=== PATIENT | female | born 1950 | race Caucasian/White ===

== ENCOUNTER → 2016-06-30 | Outpatient (CLI) | payer MEDICARE, BC ==
[~2016-06-30] MED LIST: ALEVE 220MG220 MG PO; CRANBERRY FRUI405 MG PO; MIRTAZAPINE7.5 MG PO; NORCO 325 MG-51 TAB PO; PRILOSEC 20MG20 MG PO; VOLTAREN 75 DR75 MG PO; ZYRTEC 10MG10 MG PO
== END ==
LOC: COL.CARD 13:41
DX: I34.0 Nonrheumatic mitral (valve) insufficiency (principal); I49.8 Other specified cardiac arrhythmias

== ENCOUNTER 2016-12-20 14:58 | Emergency (ER) | payer MEDICARE, BC ==
[~2016-12-20] VITALS: Ht 160 cm; Wt 75.0 kg
[2016-12-20 15:02] VITALS: BP 145/70; TEMP 97.5
[2016-12-20] MEDS ORDERED: PRILOSEC 20MG20 MG PO (16:11)
[2016-12-20] MEDS ORDERED: MIRTAZAPINE7.5 MG PO (16:11)
[2016-12-20] MEDS ORDERED: ZYRTEC 10MG10 MG PO (16:11)
[2016-12-20] MEDS ORDERED: ALEVE 220MG220 MG PO (16:11)
[2016-12-20] MEDS ORDERED: CRANBERRY FRUI405 MG PO (16:12)
[2016-12-20] MEDS ORDERED: NORCO 325 MG-51 TAB PO (17:33)
[2016-12-20] MEDS ORDERED: VOLTAREN 75 DR75 MG PO (17:33)
[2016-12-20 18:10] VITALS: PULSE 69
== END 2016-12-20 18:11 | disposition home or self-care (01) ==
LOC: COL.ER 14:58
DX: S83.91XA Sprain of unspecified site of right knee, initial encounter (principal); K21.9 Gastro-esophageal reflux disease without esophagitis; Z98.890 Other specified postprocedural states; X50.0XXA Overexertion from strenuous movement or load, initial encounter; Y92.009 Unspecified place in unspecified non-institutional (private) residence as the place of occurrence of the external cause
CPT/HCPCS: L1830

== ENCOUNTER → 2018-04-11 | Outpatient (CLI) | payer MEDICARE, BC | LOC: MC.RAD 10:53 | DX: Z12.31 Encounter for screening mammogram for malignant neoplasm of breast (principal) ==

== ENCOUNTER 2019-05-18 12:15 | Emergency (ER) | payer MEDICARE, BC ==
[~2019-05-18] VITALS: Ht 157.5 cm; Wt 70.5 kg
[2019-05-18 12:27] VITALS: TEMP 97.5
[2019-05-18 12:48] LABS: BASO % 0.4 % (0.0-2.0); EOS # 0.1 (0.0-0.7); EOS % 1.8 % (0-4.0); GRAN # 5.3 (1.4-6.5); GRAN % 72.3 % (42.2-75.2); HEMATOCRIT 40.1 % (37.0-47.0); HEMOGLOBIN 13.3 g/dl (12.5-16.0); LYMPH # 1.5 (1.2-3.4); LYMPH % 20.6 % (20.0-51.0); MEAN CELL VOLUME 90 fl (80.0-100.0); MEAN CORPUSCULAR HEMOGLOBIN 30 pg (27.0-31.0); MEAN CORPUSCULAR HGB CONC 33 g/dl (33.0-37.0); MEAN PLATELET VOLUME 9.2 fl (7.4-10.4); MONO # 0.3 (0.1-0.6); MONO % 4.6 % (1.7-9.3); PLATELET COUNT 239 K/mm3 (130-400); RED BLOOD COUNT 4.46 M/mm3 (4.10-5.30); REDCELL DISTRIBUTION WIDTH-CV 13.2 % (11.5-14.5)
[2019-05-18 13:13] LABS: INR 0.9 (0.8-3.0); PROTHROMBIN TIME 10.6 SECONDS (9.7-12.8)
[2019-05-18 13:15] LABS: PARTIAL THROMBOPLASTIN TIME 28.3 SECONDS (26.0-37.0)
[2019-05-18 13:23] LABS: ALANINE AMINOTRANSFERASE 32 U/L (9-52); ALBUMIN 3.9 gm/dL (3.5-5.0); ALKALINE PHOSPHATASE 53 U/L (50-136); ANION GAP 10 mmol/L (7-16); AST,SGOT 41 U/L (15-37); BILIRUBIN,TOTAL 0.4 mg/dL (0.0-1.0); BLOOD UREA NITROGEN 15 mg/dL (7-17); CALCIUM 8.6 mg/dL (8.4-10.2); CARBON DIOXIDE 22 mmol/L (22-30); CHLORIDE 110 mmol/L (98-107); CREATININE, serum 0.71 (0.52-1.25); GLUCOSE 99 mg/dL (74-106); POTASSIUM 3.7 mmol/L (3.4-5.0); SODIUM 142 mmol/L (137-145); TOTAL PROTEIN 6.9 gm/dL (6.4-8.2)
[2019-05-18 13:36] LABS: TROPONIN-I < 0.012 ng/mL (0.000-0.035)
[2019-05-18] MEDS ORDERED: FISH OIL 1000MG1 CAP PO (13:40)
[2019-05-18] MEDS ORDERED: PREMARIN 0.9MG0.9 MG PO (13:41)
[2019-05-18 16:39] VITALS: BP 148/73; PULSE 61
== END 2019-05-18 16:40 | disposition home or self-care (01) ==
LOC: COL.ER 12:15
PROVIDERS: Family Medicine
DX: R07.89 Other chest pain (principal); K21.9 Gastro-esophageal reflux disease without esophagitis
CPT/HCPCS: C9113

== ENCOUNTER → 2020-02-19 | Outpatient (CLI) | payer MEDICARE, BC ==
[~2020-02-19] MED LIST changes: +FISH OIL 1000MG1 CAP PO; +PREMARIN 0.9MG0.9 MG PO
== END ==
LOC: MC.RAD 10:15
DX: Z12.31 Encounter for screening mammogram for malignant neoplasm of breast (principal)

== ENCOUNTER → 2021-06-29 | Outpatient (CLI) | payer MEDICARE, BC | LOC: MC.RAD 13:02 | DX: Z12.31 Encounter for screening mammogram for malignant neoplasm of breast (principal) ==

== ENCOUNTER → 2024-02-09 | Outpatient (CLI) | payer MEDICARE, BC | LOC: MC.RAD 11:02 | DX: Z12.31 Encounter for screening mammogram for malignant neoplasm of breast (principal) ==